=== PATIENT | male | born 1985 | race African-American/Black ===

== ENCOUNTER 2017-02-24 08:40 | Emergency (ER) | payer BC, MEDICAID ==
[~2017-02-24] VITALS: Ht 175.3 cm; Wt 72.0 kg
[2017-02-24 08:41] VITALS: BP 147/80; PULSE 72; RESP 16; TEMP 98.7; O2SAT 99
[2017-02-24] MEDS ORDERED: DILA4TAB10 PO (10:33)
--- NOTE | 2017-02-24 10:42 | PD ---
HPI Chief Complaint: Injury Time Seen by Provider: 10:32 Travel History International Travel<30 days: No Contact w/Intl Traveler<30days: No Traveled to known affect area: No History of Present Illness HPI This patient complains of injury to his right foot. Duration is one day. Yesterday evening slipped and plan his foot and twisted. He has pain in the lateral aspect of the right foot. Pain is worse with weightbearing. PFSH Past Medical History Medical History: Denies Significant Hx Tetanus Vaccination: Unknown Influenza Vaccination: No Past Surgical History Surgical History: No Previous Surgery Social History Alcohol Use: Yes (SOCAILLY) Tobacco Use: No Substance Use: No Allergies-Medications (Allergen,Severity, Reaction): Coded Allergies: No Known Allergies (Unverified , 02/24/17) Reported Meds & Prescriptions Reported Meds & Active Scripts Active Reported Dilaudid (Hydromorphone HCl) 4 Mg Tab 4 Mg PO Q4H PRN Review of Systems General / Constitutional: No: Fever HENT: No: Headaches Cardiovascular: No: Chest Pain or Discomfort Respiratory: No: Cough Physical Exam Narrative SKIN: Focused skin assessment reveals no rash or ulcers. Skin is warm and dry. Palpation shows no induration or nodules. Psych: Normal mood and affect. Normal insight and judgment. Right foot: Has tenderness on the lateral border at the fifth metatarsal. Neurovascularly intact. No malleoli tenderness Data Data Last Documented VS Vital Signs Date Time Temp Pulse Resp B/P (MAP) Pulse Ox O2 Delivery O2 Flow Rate FiO2 02/24/17 10:45 55 16 145/91 (109) 100 Room Air 02/24/17 08:41 98.7 Orders Orders Foot, Complete ([id number]) (02/24/17 ) [facility] Medical Decision Making Medical Screen Exam Complete: Yes Emergency Medical Condition: Yes Medical Record Reviewed: Yes Differential Diagnosis Foot fracture, foot contusion, ankle sprain Narrative Course I have reviewed the patient's electronic medical record. I reviewed his right foot x-rays which are normal Supportive care discussed and gradual resolution is hoped for and expected Diagnosis Primary Impression: Contusion of right foot Qualified Codes: S90.31XA - Contusion of right foot, initial encounter Additional Instructions: Ice and elevate and limit weightbearing on right foot for 2 days The patient was advised to follow up with their physician and return if they worsen. Med/Other Pt SpecificInfo: Other Disposition: 01 DISCHARGE HOME Condition: Stable Fritz Niño MD Feb 24, 2017 10:42
[2017-02-24 10:45] VITALS: BP 145/91; PULSE 55; RESP 16; O2SAT 100
--- NOTE | 2017-02-24 11:14 | RADRPT ---
EXAM DATE/TIME: 02/24/2017 10:49 [place] COMPARISON: No previous studies available for comparison. INDICATIONS : Evaluate for fracture. Patient complains of right foot pain after coming down on it sideways. MEDICAL HISTORY : None. SURGICAL HISTORY : None. ENCOUNTER: Initial ACUITY: 2 days PAIN SCORE: 10/10 LOCATION: Right foot. FINDINGS: Three view examination of the right foot demonstrates no soft tissue swelling, dislocation, or fractu re. The tarsal bones appear intact. The interphalangeal and metatarsophalangeal joints are intact. The calcaneus is intact. Bony mineralization is normal. CONCLUSION: Unremarkable examination of the right foot. Jose G Hernandez MD on February 24, 2017 at 11:09 Board Certified Radiologist. This report was verified electronically.
[2017-02-24 12:06] VITALS: BP 136/78
== END 2017-02-24 12:07 | disposition home or self-care (01) ==
LOC: NEPD 08:40
DX: S90.31XA Contusion of right foot, initial encounter (principal); W01.0XXA Fall on same level from slipping, tripping and stumbling without subsequent striking against object, initial encounter; Z79.899 Other long term (current) drug therapy
CPT/HCPCS: 73630; 99283